=== PATIENT | male | born 1985 | race Caucasian/White ===

== ENCOUNTER → 2017-04-08 | Outpatient (CLI) | payer BC ==
[~2017-04-08] MED LIST: NO HOME MEDICATIONS; NORCO 325 MG-51 TAB PO
== END ==
LOC: COL.RAD 12:03
DX: N50.819 Testicular pain, unspecified (principal); N45.1 Epididymitis; N43.3 Hydrocele, unspecified

== ENCOUNTER → 2018-09-16 | Outpatient (CLI) | payer BC | LOC: COL.RAD 08:46 | DX: R10.12 Left upper quadrant pain (principal) | CPT/HCPCS: A9585 ==

== ENCOUNTER → 2021-05-02 | Outpatient (CLI) | payer BC ==
[~2021-05-02] MED LIST changes: +BENTYL 10MG10 MG/CAP PO; +FLOMAX 0.40.4 MG/CAP PO
== END ==
LOC: COL.RAD 10:28
DX: N20.2 Calculus of kidney with calculus of ureter (principal)

== ENCOUNTER 2021-05-03 15:03 | Day surgery (SDC) | payer BC ==
[~2021-05-03] VITALS: Ht 188 cm; Wt 87.2 kg
[~2021-05-03 15:03] MED LIST changes: -BENTYL 10MG10 MG/CAP PO; -FLOMAX 0.40.4 MG/CAP PO
[2021-05-03 15:48] VITALS: BP 126/80; PULSE 85; TEMP 99.2
[2021-05-03] MEDS ORDERED: BENTYL 10MG10 MG/CAP PO (16:11)
[2021-05-03] MEDS ORDERED: FLOMAX 0.40.4 MG/CAP PO (18:18)
[2021-05-03 18:45] VITALS: BP 124/86; PULSE 78; TEMP 98.6
--- NOTE | 2021-05-03 18:45 | NUR ---
Pt awake and alert, returns to [facility] from PACU, reports pain to urethra after using the urinal. Provided with sprite and crackers and mom updated at this time. Pt reports he wants to get dressed and go home. He is allowed to dress and told we will see how he does.
[2021-05-03 19:00] VITALS: BP 125/85; PULSE 78
--- NOTE | 2021-05-03 19:00 | NUR ---
Pt rates pain 4/10, request a pain pill. Dr. Gates called and orders for [place] 5 mg, pt awake and alert, tolerating crackers and sprite well. VSS. Pt up to the bathroom at this time.
[2021-05-03 19:15] VITALS: BP 123/82; PULSE 79
--- NOTE | 2021-05-03 19:30 | NUR ---
Pt was able to void again, pink no clots. Pt wants to go home, continues to rate pain 4/10 to urethra, burning pain. Pt denies nausea. VSS. 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 Mom notified at to bedside and taken out via w/c and left in care to her at 1945.
== END 2021-05-03 19:45 | disposition home or self-care (01) ==
LOC: SDCO 15:03
DX: N20.2 Calculus of kidney with calculus of ureter (principal); N32.89 Other specified disorders of bladder; Z20.822 Contact with and (suspected) exposure to COVID-19; Z79.899 Other long term (current) drug therapy
CPT/HCPCS: C1769; C2617; J0690; J2405; J2704; J3010; J7120

== ENCOUNTER → 2021-10-16 | Outpatient (CLI) | payer BC ==
[~2021-10-16] MED LIST changes: +BENTYL 10MG10 MG/CAP PO; +FLOMAX 0.40.4 MG/CAP PO
== END ==
LOC: COL.RAD 13:00
DX: R10.32 Left lower quadrant pain (principal)

== ENCOUNTER → 2021-11-13 | Outpatient (CLI) | payer BC | LOC: COL.VAS 14:00 | DX: I34.0 Nonrheumatic mitral (valve) insufficiency (principal) ==

== ENCOUNTER 2024-05-10 10:10 | Day surgery (SDC) | payer BC ==
[~2024-05-10] VITALS: Ht 188 cm; Wt 95.9 kg
[~2024-05-10 10:10] MED LIST changes: +LR 1,000 ML IV SCH; +Ondansetron 4 MG/2 ML VIAL IV PRN
[2024-05-10 10:49] VITALS: BP 119/95; PULSE 102; TEMP 98.4
[2024-05-10] MEDS ORDERED: VIMPAT100 MG PO (11:00)
[2024-05-10] MEDS ORDERED: KEPPRA750 MG PO (11:01)
[2024-05-10] MEDS ORDERED: [UNRECOGNIZED DRUG - OTHER] PO (11:03)
[2024-05-10] MEDS ORDERED: MULTI VITAMINS1 TAB PO (11:03)
[2024-05-10] MEDS ORDERED: VITAMIN D 400400 IU PO (11:04)
[2024-05-10] MEDS ORDERED: Lidocaine PF 2% (20 MG/ML) 5 ML VIAL ONE (11:11)
[2024-05-10 11:39] VITALS: TEMP 98
[2024-05-10 11:50] VITALS: BP 116/83; PULSE 90
[2024-05-10 12:05] VITALS: BP 115/83; PULSE 82
[2024-05-10 12:20] VITALS: BP 122/81; PULSE 83
--- NOTE | 2024-05-10 12:27 | NUR ---
1150 PATIENT RETURNS TO [facility]ART. PT AWAKE AND ALERT. RESPIRATIONS UNLABORED. AMBULATED TO RECLINER CHAIR WITH 2:1 SBA. PT DENIES NAUSEA OR ABDOMINAL PAIN. HOOKED UP TO MONITOR AND VS OBTAINED. CALL LIGHT AT SIDE AND SISTER PRESENT. 1155 PATIENT TOLERATING SPRITE AND MUFFIN WITHOUT NAUSEA OR DIFFICULTY SWALLOWING. 1210 DR. JONES IN ROOM SPEAKING WITH PATIENT. 1215 D/C INSTRUCTIONS REVIEWED WITH PATIENT. PT VERBALIZED UNDERSTANDING AND A COPY OF INSTRUCTIONS PROVIDED IN D/C FOLDER. 1230 PATIENT DRESSES SELF. 1235 PATIENT DISCHARGED FROM UNIT VIA W/C TO A PERSONAL VEHICLE. PT LEFT HOSPITAL IN STABLE CONDITION.
== END 2024-05-10 12:35 | disposition home or self-care (01) ==
LOC: SDCO 10:10
DX: Z12.11 Encounter for screening for malignant neoplasm of colon (principal); K57.30 Diverticulosis of large intestine without perforation or abscess without bleeding; K64.0 First degree hemorrhoids; Q85.89 Other phakomatoses, not elsewhere classified; K31.7 Polyp of stomach and duodenum; Z86.010 Personal history of colon polyps
CPT/HCPCS: J2704; J7120

== ENCOUNTER → 2024-05-11 | Outpatient (CLI) | payer BC ==
[~2024-05-11] MED LIST changes: +Gadoterate 20 ML VIAL IV ONE; +KEPPRA750 MG PO; -LR 1,000 ML IV SCH; +MULTI VITAMINS1 TAB PO; -Ondansetron 4 MG/2 ML VIAL IV PRN; +VIMPAT100 MG PO; +VITAMIN D 400400 IU PO; +[UNRECOGNIZED DRUG - OTHER] PO
== END ==
LOC: COL.RAD 11:28
DX: G93.89 Other specified disorders of brain (principal); D36.10 Benign neoplasm of peripheral nerves and autonomic nervous system, unspecified
CPT/HCPCS: A9575